=== PATIENT | female | born 1960 | race Caucasian/White ===

== ENCOUNTER 2020-12-29 13:09 | Emergency (ER) | payer OTHER ==
[~2020-12-29] VITALS: Ht 170.2 cm; Wt 72.8 kg
[2020-12-29] MEDS ORDERED: fentaNYL PF VIAL 100 MCG/2 ML VIAL IVP ONE (14:00)
--- NOTE | 2020-12-29 14:35 | RAD ---
EXAMINATION: Left shoulder and left radiographs. VIEWS: 2 views of the left shoulder and 2 views of the left clavicle. COMPARISON: None INDICATION:60 years, Female, fall. FINDINGS: Acute comminuted mid left clavicular fracture with inferior displacement. No dislocation or subluxati on. Left infrahilar patchy airspace opacities. IMPRESSION: 1. Acute comminuted mid left clavicular fracture with inferior displacement. 2. Left infrahilar patchy airspace opacities, may represent atelectatic changes, versus infiltrate. Electronically signed by: Lashaun Gallardo MD (12/29/2020 2:33 PM) [facility]
[2020-12-29] MEDS ORDERED: oxyCODONE/APAP 5/325 1 TAB TABLET PO ONE (15:00)
[2020-12-29 15:04] VITALS: BP 167/97
[2020-12-29] MEDS ORDERED: OXYC1TAB15 PO (15:07)
--- NOTE | 2020-12-29 15:08 | PHYS DOC ---
Past Medical History Additional Past Medical Histor: chronic pain Past Surgical History: Other Additional Past Surgical Histo: 2 back surgeries Smoking Status: Never Smoker Alcohol Use: None General Adult EDM: Chief Complaint: SHOULDER INJURY HPI: HPI: Patient is a 60 year old [f__sex] who presents with [] Review of Systems: Review of Systems: Constitutional: Denies fever or chills Eyes: Denies redness or eye pain HENT: Denies nasal congestion or sore throat Respiratory: Denies cough or shortness of breath Cardiovascular: Denies chest pain or palpitations GI: Denies abdominal pain, nausea, or vomiting : Denies dysuria or hematuria Musculoskeletal: Denies back pain or joint pain Integument: Denies rash or skin lesions Neurologic: Denies headache, focal weakness or sensory changes Complete systems were reviewed and found to be within normal limits, except as documented in this note. Heart Score: C/O Chest Pain: N/A Current Medications: Current Medications Medications (Trade) Dose Ordered Sig/Mikal Start Time Stop Time Status Last Admin Dose Admin Fentanyl Citrate (Fentanyl 2ml Vial) 75 mcg 1X ONCE 12/29/20 14:00 12/29/20 14:09 DC 12/29/20 14:38 75 MCG Allergies: Allergies: Allergies Coded Allergies Type Severity Reaction Last Updated Verified Penicillins Allergy Unknown 12/29/20 Yes Sulfa (Sulfonamide Antibiotics) Allergy Unknown 12/29/20 Yes Physical Exam: PE: Constitutional: Well developed, well nourished, no acute distress, non-toxic appearance HENT: Normocephalic, atraumatic Eyes: PERRL, EOMI, conjunctiva normal, no discharge Neck: Normal range of motion, no tenderness, supple Lungs & Thorax: No respiratory distress, equal chest rise and fall Abdomen: Soft, no tenderness Skin: Warm, dry, no erythema, no rash Back: No tenderness, no CVA tenderness Extremities: No tenderness, ROM intact, no edema Neurologic: Alert and oriented X 3, normal motor function, normal sensory function, no focal deficits noted Psychologic: Affect normal, judgment normal Current Patient Data: Vital Signs: Vital Signs Date Time Temp Pulse Resp B/P (MAP) Pulse Ox O2 Delivery O2 Flow Rate FiO2 12/29/20 14:38 97 12/29/20 13:20 98.6 75 18 139/98 Room Air 98.6 EKG: EKG: [] Radiology/Procedures: Radiology/Procedures: VIEWS: 2 views of the left shoulder and 2 views of the left clavicle. COMPARISON: None INDICATION:60 years, Female, fall. FINDINGS: Acute comminuted mid left clavicular fracture with inferior displacement. No dislocation or subluxation. Left infrahilar patchy airspace opacities. IMPRESSION: 1. Acute comminuted mid left clavicular fracture with inferior displacement. 2. Left infrahilar patchy airspace opacities, may represent atelectatic changes, versus infiltrate. Electronically signed by: Lashaun Gallardo MD (12/29/2020 2:33 PM) [facility] Course & Med Decision Making: Course & Med Decision Making Pertinent Imaging studies reviewed. (See chart for details) Patient stable for discharge with outpatient follow-up with PCP. Discussed findings and plan with patient, who acknowledges understanding and agreement. Dragon Disclaimer: Dragon Disclaimer: This electronic medical record was generated, in whole or in part, using a voice recognition dictation system. Departure Departure Impression: Primary Impression: Clavicular fracture, closed, shaft Qualified Codes: S42.022A - Displaced fracture of shaft of left clavicle, initial encounter for closed fracture Disposition: HOME / SELF CARE / HOMELESS Condition: STABLE Referrals: NON,STAFF (PCP) ANTHONY MENDENHALL DO Patient Instructions: Clavicle Fracture, [id number], Shoulder Immobilizer Additional Instructions: ICE area of discomfort 20 min on then leave off next 20 mins. Repeat several times daily as needed for next few days. Scripts Oxycodone/Apap 5-325 (PERCOCET 5-325 MG TABLET ) 1 Each Tablet 1 TAB PO PRN Q6HRS PRN for PAIN, #14 TAB 0 Refills Prov: ANTHONY MATTHEWS DO 12/29/20 ANTHONY MATTHEWS DO Dec 29, 2020 15:08
== END 2020-12-29 15:40 | disposition home or self-care (01) ==
LOC: ER 13:09
DX: S42.022A Displaced fracture of shaft of left clavicle, initial encounter for closed fracture (principal); G89.29 Other chronic pain; Z88.0 Allergy status to penicillin; Z88.2 Allergy status to sulfonamides; W18.39XA Other fall on same level, initial encounter; Y93.89 Activity, other specified; Y92.89 Other specified places as the place of occurrence of the external cause; Y99.8 Other external cause status
CPT/HCPCS: 73000; 73030; 96374; 99284; J3010